=== PATIENT | female | born 1940 | race Caucasian/White ===

== ENCOUNTER → 2023-08-20 20:11 | Outpatient (REF) | payer OTHER, SELFPAY | LOC: MRI 20:11 | PROVIDERS: ATTENDING PHYSICIAN Psychiatry & Neurology Neurology; FAMILY PHYSICIAN Internal Medicine | DX: M54.12 Radiculopathy, cervical region (principal) | CPT/HCPCS: 72141 ==

== ENCOUNTER → 2023-12-10 12:14 | Outpatient (REF) | payer OTHER, SELFPAY | LOC: WDC 12:14 | PROVIDERS: ATTENDING PHYSICIAN Internal Medicine | DX: Z12.31 Encounter for screening mammogram for malignant neoplasm of breast (principal) | CPT/HCPCS: 77063; 77067 ==

== ENCOUNTER 2024-04-13 03:24 | Emergency (ER) | payer OTHER, SELFPAY ==
[2024-04-13 03:33] VITALS: BP 190/106
[2024-04-13 04:00] VITALS: BP 167/83
[2024-04-13 04:27] LABS: % Basophils 1.3 % (0-2); % Eosinophils 4.6 % (0-6); % Immature Granulocytes 0.4 % (0-0.5); % Lymphocytes 37.1 % (20.5-51.1); % Neutrophils 44.6 % (42.2-75.2); Absolute Basophils 0.1 10^3/uL (0-0.2); Absolute Eosinophils 0.3 10^3/uL (0-0.7); Absolute Lymphocytes 2.5 10^3/uL (1.2-3.4); Absolute Monocytes 0.8 10^3/uL (0.1-0.6); Hematocrit 40.9 % (37.0-47.0); Hemoglobin 13.9 g/dL (12.0-16.0); Mean Corpuscular Hgb 31.2 pg (27.0-31.0); Mean Corpuscular Volume 91.9 fL (81.0-99.0); Mean Platelet Volume 10.2 fL (7.4-10.4); Nucleated Red Blood Cells % 0 %; Platelet Count 310 10^3/uL (130-400); Red Blood Cell Count 4.45 10^6/uL (4.20-5.40); Red Cell Dist. Width 12.1 % (11.5-14.5); White Blood Cell Count 6.8 10^3/uL (4.8-10.8)
[2024-04-13 04:38] LABS: ALT (SGPT) 22 U/L (0-35); AST (SGOT) 25 U/L (14-36); Albumin 4.9 g/dl (3.5-5.0); Alkaline Phosphatase 83 U/L (38-126); Blood Urea Nitrogen 20 mg/dl (7-17); Calcium 9.8 mg/dl (8.4-10.2); Carbon Dioxide 24 mmol/L (22-30); Chloride 101 mmol/L (98-107); Glucose 196 mg/dl (70-99); Potassium 3.8 mmol/L (3.5-5.1); Sodium 136 mmol/L (135-145); Total Bilirubin 0.9 mg/dl (0.2-1.3); Total Protein 7.2 g/dl (6.3-8.2); eGFR > 60.00
[2024-04-13 04:56] LABS: Troponin I < 0.012 ng/ml
--- NOTE | 2024-04-13 06:29 | ED.GENMED ---
History of Present Illness
General
Chief Complaint: Heart Rate Problem
Source: patient
Time Seen by Provider: 04/13/24 06:21
History of Present Illness
History of Present Illness:
You [place] 84-year-old female presents to the emergency room concerned that her heart was 'racing'. She states while laying in bed she felt as if her heart was beating more rapidly. She also had nausea. Her Fitbit recorded her heart rate at 111. She
denies any shortness of breath. She may have had some mild chest pressure which is gone now. No new medications. Patient states she had an episode similar to this which she discussed with her family doctor. The plan at that time was to just
monitor things. 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
Phy Exam
Physical Exam
Physical Exam:
General: Awake, Alert, Oriented X3. No acute distress.
Vitals: unremarkable
Head: Atraumatic
Eyes: Pupils equal, EOMI
Throat: Airway intact, no exudates
Neck: Trachea midline
Lungs: Clear and equal b/l
Heart: Regular rate, 2/6 murmurs
Abd: Soft, Nontender, No pulsatile mass
Neuro: Nonfocal
Skin: Warm, dry, no rash
Extremities: pulses equal b/l, no edema
Course
Orders/Labs/Results
Orders:
Orders
04/13/24 03:45
EKG [Electrocardiogram (*1)] Urgent
Reason for Study: Other
Other Reason for Exam: irregular heart rate
04/13/24 03:47
EKG- Treatment ONCE
04/13/24 04:05
Complete Blood Count/With Diff Urgent
Comprehensive Metabolic Panel Urgent
Troponin I Urgent
04/13/24 07:00
Troponin I Urgent
Abnormal Lab Results
04/13/24
04:05
MCH 31.2 H pg
(27.0-31.0)
Absolute Monos (auto) 0.8 H 10^3/uL
(0.1-0.6)
Monocytes % 12.0 H %
(1.7-9.3)
BUN 20 H mg/dl
(7-17)
Glucose 196 H mg/dl
(70-99)
04/13/24 04:05
04/13/24 04:05
Vital Signs
Initial and Last Documented VS:
Initial Vital Signs
Temp Pulse Resp BP Pulse Ox
97.7 F 94 22 190/106 97
04/13/24 03:33 04/13/24 03:33 04/13/24 03:33 04/13/24 03:33 04/13/24 03:33
Last Documented Vital Signs
Temp Pulse Resp BP Pulse Ox
97.7 F 78 18 146/82 99
04/13/24 03:33 04/13/24 08:35 04/13/24 08:35 04/13/24 08:35 04/13/24 08:35
MDM/Problems Addressed
Differential Diagnosis Includes:
PVCs, PACs, paroxysmal atrial fibrillation
MDM/Problems Addressed:
Patient presents with palpitations. EKG shows an occasional PAC. Cardiac monitoring shows an occasional PAC. Labs are reassuring. There is no evidence for an unstable process requiring hospitalization. Patient will be discharged home she is
been given contact information for cardiology to make an outpatient appointment.
*Pulse Oximetry
Patient hypoxic: no
*EKG
Interpreted by ED Provider?: Yes
Interpretation: abnormal
Heart Rate: 85
Rate: normal
Rhythm: sinus and PAC's
Interval: normal interval
QRS Pattern: normal QRS
Ischemia: no ischemia
*Horticultural Agent Interpretation
Rate: normal
Interpretation: normal
Rhythm: sinus
*Critical Care Note
Total Time (30-74mins, 75-104mins- exclusive of procedures): Not Applicable
ED Attending Note
-
Portions of this chart may have been created with voice recognition software.� Occasional wrong word or��sound alike� substitutions may have occurred due to the inherent limitations of voice recognition software.
Discharge Plan
Departure
Patient Disposition: Home (Routine Discharge)
Date of Disposition: 04/13/24
Time of Disposition: 08:26
Patient with high blood pressure during this ER visit?: Yes
Condition: Good
Discharge Problem:
Palpitations
Instructions: Palpitations (DC), BLOOD PRESSURE
Prescriptions:
No Action
metformin 500 mg Tablet
500 mg PO BID
atorvastatin 20 mg Tablet
20 mg PO DAILY
levothyroxine 100 mcg Tablet
50 mcg PO DAILY
raloxifene 60 mg Tablet
60 mg PO DAILY
omeprazole 20 mg Tablet,Delayed Release (Dr/Ec)
20 mg PO DAILY
Referrals:
Laith Rizo MD [Active] -
Felisa Roach MD [Family Provider] -
Interventions
Interventions:
*Risk Screen - Suicide Last Done: 04/13/24 03:33
*General Assessment Last Done: 04/13/24 04:08
*Neglect/Abuse Screening Last Done: 04/13/24 03:33
ED- Fall Risk Assessment Last Done: 04/13/24 04:08
*ED COVID-19 Vaccine History Last Done: 04/13/24 04:08
*Nursing Disposition Last Done: 04/13/24 08:54
LJ-Ntnrfp-Fsyjrliuyo Assessment Last Done: 04/13/24 04:08
ED- Cardiac Assessment Last Done: 04/13/24 04:08
ED- Pulmonary Assessment Last Done: 04/13/24 04:08
Discharge Date and Time
Discharge Date/Time: 04/13/24 08:54
Print Language: GUYANESE
[2024-04-13 07:35] LABS: Troponin I < 0.012 ng/ml
[2024-04-13 08:35] VITALS: BP 146/82
== END 2024-04-13 08:54 | disposition home or self-care (01) ==
LOC: EMR 03:24
PROVIDERS: Emergency Medicine; EMERGENCY PHYSICIAN Emergency Medicine; FAMILY PHYSICIAN Internal Medicine
DX: R00.2 Palpitations (principal)
CPT/HCPCS: 99283; 80053; 84484; 85025; 93005

== ENCOUNTER → 2024-04-21 09:52 | Outpatient (REF) | payer OTHER, SELFPAY | LOC: RCS 09:52 | PROVIDERS: ATTENDING PHYSICIAN Nurse Practitioner Family; FAMILY PHYSICIAN Internal Medicine | DX: R00.2 Palpitations (principal) | CPT/HCPCS: 93225; 93226 ==

== ENCOUNTER → 2024-11-24 14:57 | Outpatient (REF) | payer OTHER, SELFPAY | LOC: RCS 14:57 | PROVIDERS: ATTENDING PHYSICIAN Internal Medicine | DX: I35.0 Nonrheumatic aortic (valve) stenosis (principal) | CPT/HCPCS: 93306 ==

== ENCOUNTER → 2024-12-10 12:51 | Outpatient (REF) | payer OTHER, SELFPAY | LOC: WDC 12:51 | PROVIDERS: ATTENDING PHYSICIAN Internal Medicine | DX: Z12.31 Encounter for screening mammogram for malignant neoplasm of breast (principal) | CPT/HCPCS: 77063; 77067 ==

== ENCOUNTER → 2025-01-01 09:53 | Outpatient (REF) | payer OTHER, SELFPAY | LOC: RAD 09:53 | PROVIDERS: ATTENDING PHYSICIAN Internal Medicine | DX: Z78.0 Asymptomatic menopausal state (principal) | CPT/HCPCS: 77080 ==